=== PATIENT | male | born 1975 | race Caucasian/White ===

== ENCOUNTER 2018-03-14 19:18 | Emergency (ER) | payer SELFPAY ==
[~2018-03-14] VITALS: Ht 182.9 cm; Wt 59.1 kg
[2018-03-14] MEDS ORDERED: CEFTIN 250250 MG/TAB PO (20:58)
[2018-03-14 21:09] VITALS: BP 127/83; PULSE 85; TEMP 98.6
== END 2018-03-14 21:10 | disposition home or self-care (01) ==
LOC: COL.ER 19:18
DX: J32.9 Chronic sinusitis, unspecified (principal); F17.210 Nicotine dependence, cigarettes, uncomplicated